=== PATIENT | male | born 1985 | race Caucasian/White ===

== ENCOUNTER 2020-10-14 00:26 | Emergency (ER) | payer BC ==
[~2020-10-14] VITALS: Ht 185.4 cm; Wt 107.9 kg
[2020-10-14 00:33] VITALS: BP 132/96
[2020-10-14] MEDS ORDERED: LIDOCAINE-MPF 1%, 5ML ONE (00:49)
[2020-10-14] MEDS ORDERED: CLINDAMYCIN PMX 600MG/50ML 50 ML ONE (00:59)
[2020-10-14] MEDS ORDERED: CLINDAMYCIN PMX 600MG/50ML 50 ML IVPB ONE (01:00)
[2020-10-14] MEDS ORDERED: LIDOCAINE-MPF 1%, 5ML INFIL ONE (01:00)
[2020-10-14] MEDS ORDERED: SODIUM CHLORIDE FLUSH 10ML SYR IVF ONE (01:00)
--- NOTE | 2020-10-14 01:07 | NUR ---
PT AMBULATED TO ROOM. C/O PAIN AND ABCESS TO RIGHT HAND 5TH KNUCKLE. PT HAS SWELLING TO DORSAL PORTION OF HAND, AND MILD REDNESS ON HIS ANTERIOR FOREARM. MD TO BEDSIDE TO EVAL PT, AND WOUND IS DRAINING PUS, AND WILL I&D THE WOUND. MEDS AND EQUIPMENT BROUGHT TO THE BEDSIDE AND PIV STARTED TO LEFT HAND X1 ATTEMPT, WITH 18G CATH, AND FLUSHED EASILY AND SECURED WITH TAPE, AND PT TOLERATED WELL. ANTIBIOTICS STARTED PER MD ORDER, SEE EMAR.
--- NOTE | 2020-10-14 02:11 | NUR ---
RIGHT HAND WOUND CLEANSED, I&D'D AND DRAINED AND PT TOLERATED WELL. ANTIBIOTICS COMPLETE, AND PT TO BE DC. F/U AND D/C INSTRUCTIONS WITH PRESCRIPTIONS GIVEN TO PT AND HE V/U. PTS RIGHT HAND WOUND WRAPPED AND DRESSED AND F/U AND WOUND CARE INSTRUCTIONS GIVEN TO PT AND HE V/U. PT AMBULATED TO THE D/C DESK.
== END 2020-10-14 02:13 | disposition home or self-care (01) ==
LOC: ED 01:40
DX: L03.113 Cellulitis of right upper limb (principal); L02.511 Cutaneous abscess of right hand
CPT/HCPCS: 10060; 87070; 87186; 87205; 96365; 99284